=== PATIENT | male | born 1960 | race Caucasian/White ===

== ENCOUNTER 2024-06-21 16:14 | Emergency (ER) | payer OTHER, MEDICARE ==
[~2024-06-21] VITALS: Ht 180.3 cm; Wt 100.9 kg
[2024-06-21] MEDS ORDERED: ROSUVASTATIN CA10 MG PO (16:46)
[2024-06-21] MEDS ORDERED: FLOMAX0.4 MG PO (16:47)
[2024-06-21] MEDS ORDERED: D3-200050 MCG PO (16:48)
[2024-06-21] MEDS ORDERED: LEVOTHYROXINE25 MC1 PO (16:48)
[2024-06-21 17:22] LABS: BILIRUBIN, URINE NEGATIVE (negative); BLOOD/HGB, URINE LARGE (Negative); KETONE, URINE TRACE (Negative); LEUK ESTERASE, URINE NEGATIVE (negative); NITRITE, URINE NEGATIVE (negative)
[2024-06-21 17:24] LABS: HEMATOCRIT 43.4 % (35.0-50.0); HEMOGLOBIN 14.9 g/dL (12.0-18.0); LYMPHOCYTES 2.9 % (24-44); MCHC 34.2 g/dl (30-36); MCV 87.7 fl (81-99); MONOCYTES 3.4 % (0-12); NEUTROPHILS 93.7 % (39-80); PLATELET COUNT 211 K/uL (140-440); RBC 4.95 M/ul (4.3-5.7); RDW 12.9 (10.5-15.0)
[2024-06-21 17:29] LABS: BACTERIA, URINE NONE SEEN /hpf (negative); CASTS, URINE NONE SEEN \\lpf; COLLECTION TYPE, URINE CLEAN CATCH; CRYSTALS, URINE NONE SEEN (0-1+); EPITHELIAL CELLS, URINE SQUAMOUS 1+ /lpf (0-1+); RED BLOOD CELLS, URINE 41-50 /hpf (0-5); REFLEX CULTURE, URINE No (No); WHITE BLOOD CELLS, URINE 0-1 /HPF (0-5)
[2024-06-21 17:47] LABS: ALBUMIN 4.4 g/dL (3.4-5.0); ALBUMIN/GLOBULIN RATIO 1.38 (1.1-2.4); ANION GAP 14.3 (7-21); BILIRUBIN, TOTAL 0.6 mg/dL (0.2-1.0); BUN/CREATININE RATIO 16.66 (6.0-28.6); CALCIUM 9.7 mg/dL (8.5-10.1); CREATININE, SERUM 0.9 mg/dL (0.70-1.30); POTASSIUM 4.3 mmol/L (3.5-5.1); PROTEIN, TOTAL 7.6 g/dL (6.4-8.2)
[2024-06-21 19:00] VITALS: BP 148/45
== END 2024-06-21 19:00 | disposition home or self-care (01) ==
LOC: ED 16:14
PROVIDERS: Emergency Medicine
DX: R33.9 Retention of urine, unspecified (principal); I10 Essential (primary) hypertension
CPT/HCPCS: 36415; 51702; 51798; 80053; 81001; 85025; 99284-25